=== PATIENT | female | born 1960 | race Caucasian/White ===

== ENCOUNTER 2023-02-28 08:42 | Outpatient (RCR) | payer OTHER, SELFPAY ==
[2023-02-28 09:12] VITALS: BP 122/78; PULSE 87; RESP 16; TEMP 36.2; O2SAT 97
[2023-02-28] MEDS: IRON SUCROSE COMPLEX 300 MG in 0.9 % SODIUM CHLORIDE 250 ML 176 MG IV (09:17)
--- NOTE | 2023-02-28 09:35 | PC.NURSE ---
0900: Patient is here for Venofer Infusion, she denies any issues or concerns. Patient tolerated IV start well, Venofer infusing without any issues, will continue to monitor.
[2023-03-07 09:02] VITALS: BP 131/82; PULSE 80; RESP 16; TEMP 36.8; O2SAT 97
[2023-03-07] MEDS: IRON SUCROSE COMPLEX 300 MG in 0.9 % SODIUM CHLORIDE 250 ML 176 MG IV (09:08)
--- NOTE | 2023-03-07 09:29 | PC.NURSE ---
Patient is here for Venofer infusion, she states she tolerated the previous infusion well without issues. Venofer infusing and patient tolerating well.
== END 2023-03-16 23:59 | disposition home or self-care (01) ==
LOC: INF 08:42
PROVIDERS: PCP Nurse Practitioner Family; Visit Provider Nurse Practitioner Family
DX: D50.9 Iron deficiency anemia, unspecified (principal)
CPT/HCPCS: 96365; J1756

== ENCOUNTER 2024-01-01 08:14 | Outpatient (OUT) | payer OTHER, SELFPAY ==
[2024-01-01 08:50] LABS: Estimated Average Glucose 117 mg/dL; Glycohemoglobin A1C 5.7 % (4.5-6.2)
[2024-01-01 08:56] LABS: Basophils Absolute Auto 0.1 10^3/uL (0.0-0.1); Basophils Percent Auto 1.4 % (0.2-2.0); Eosinophils Absolute Auto 0.3 10^3/uL (0.0-0.7); Eosinophils Percent Auto 4.7 % (0.9-7.0); Hematocrit 31.7 % (36.0-48.0); Hemoglobin 8.9 g/dL (12.0-16.0); Immature Granulocytes Abs Auto 0.02 10^3/uL (0.00-0.03); Immature Granulocytes Pct Auto 0.3 % (0.0-0.5); Lymphocytes Percent Auto 15.5 % (20.5-60.0); Mean Corpuscular HGB Conc 28.1 g/dL (29.9-35.2); Mean Corpuscular Hemoglobin 22.4 pg (26.7-34.0); Mean Corpuscular Volume 79.6 fL (81.0-99.0); Mean Platelet Volume 10.7 fL (9.5-13.5); Monocytes Absolute Auto 0.6 10^3/uL (0.3-0.8); Monocytes Percent Auto 8.7 % (1.7-12.0); Neutrophils Absolute Auto 4.5 10^3/uL (1.4-6.5); Neutrophils Percent Auto 69.4 % (43.0-75.0); Platelet Count 378 10^3/uL (150-450); Red Blood Count 3.98 10^6/uL (4.20-5.40); Red Cell Distribution Width 17.5 % (11.0-15.0); White Blood Count 6.5 10^3/uL (4.0-11.0)
[2024-01-01 09:13] LABS: Alanine Aminotransferase 20 U/L (14-59); Albumin Globulin Ratio 1.1; Albumin Level 3.6 g/dL (3.4-5.0); Alkaline Phosphatase 117 U/L (46-116); Anion Gap 13.2; Aspartate Amino Transferase 14 U/L (15-37); BUN Creatinine Ratio 15.8; Bilirubin Total 0.4 mg/dL (0.2-1.0); Calcium 9.2 mg/dL (8.5-10.1); Carbon Dioxide 26.8 mmol/L (21.0-32.0); Chloride 105 mmol/L (98-107); Chol HDL Ratio 4.2; Cholesterol 192 mg/dL (<=200); Estimated GFR (African America >60 (>=60); Estimated GFR (Non-African Ame >60 (>=60); Free T3 2.14 pg/mL (2.18-3.98); Globulin 3.3 g/dL; Glucose 102 mg/dL (74-106); HDL Cholesterol 46 mg/dL (40-60); Sodium 141 mmol/L (136-145); Total Protein 6.9 g/dL (6.4-8.2); Triglycerides 184 mg/dL (<=150); VLDL CHOLESTEROL 36.8 mg/dL
[2024-01-02 10:10] LABS: Insulin 21.4 uIU/mL (2.6-24.9)
== END 2024-01-01 08:15 | disposition home or self-care (01) ==
LOC: LAB 08:19
PROVIDERS: PCP Nurse Practitioner Family; Visit Provider Nurse Practitioner Family
DX: Z00.00 Encounter for general adult medical examination without abnormal findings (principal)
CPT/HCPCS: 36415; 80053; 80061; 82306; 83036; 83525; 83540; 84436; 84443; 84481; 85025